=== PATIENT | male | born 1955 | race Caucasian/White ===

== ENCOUNTER → 2017-10-04 | Outpatient (CLI) | payer OTHER ==
[~2017-10-04] MED LIST: CYCL10 PO; NAPR500 PO
[2017-10-04 11:36] LABS: BASOPHILS ABSOLUTE AUTO 0.02 K/mm3 (0.00-0.23); BASOPHILS PERCENT AUTO 0 % (0-2); EOSINOPHILS ABSOLUTE AUTO 0.16 K/mm3 (0.00-0.68); EOSINOPHILS PERCENT AUTO 3 % (0-6); Hematocrit 42.1 % (37.0-53.0); Hemoglobin 13.7 g/dL (13.5-17.5); IMMATURE GRAN ABSOLUTE AUTO 0.02 K/mm3 (0.00-0.10); IMMATURE GRAN PERCENT AUTO 0 % (0-1); LYMPHOCYTES ABSOLUTE AUTO 1.74 K/mm3 (0.84-5.20); LYMPHOCYTES PERCENT AUTO 27 % (21-46); MONOCYTES ABSOLUTE AUTO 0.63 K/mm3 (0.16-1.47); MONOCYTES PERCENT AUTO 10 % (4-13); Mean Corpuscular HGB 30.9 pg (26.0-34.0); Mean Corpuscular HGB Conc 32.5 g/dL (31.5-36.5); Mean Corpuscular Volume 95 fL (80-100); Mean Platelet Volume 12.6 fL (9.1-12.4); NEUTROPHILS ABSOLUTE AUTO 3.88 K/mm3 (1.96-9.15); NEUTROPHILS PERCENT AUTO 60 % (41-73); Platelet Count 128 K/mm3 (150-400); RDW Coefficient Variation 12.6 % (11.7-14.2); RDW Standard Deviation 43.6 fL (35.1-46.3); Red Blood Cell Count 4.44 M/mm3 (4.30-5.90); White Blood Cell Count 6.45 K/mm3 (4.00-11.30)
[2017-10-04 12:11] LABS: Alanine Aminotransfer (ALT/SGP 18 U/L (12-78); Albumin, Blood 4.4 g/dL (3.4-5.0); Albumin/Globulin Ratio 1.3 (0.8-1.8); Alk Phos 72 U/L (50-136); Anion Gap 9 mmol/L (6-16); Aspartate Aminotrans (AST/SGOT 14 U/L (12-37); Bilirubin, Total 0.5 mg/dL (0.1-1.0); Blood Urea Nitrogen 25 mg/dL (8-24); Bun/Creatinine Ratio 19.7 (12.0-20.0); CO2, Blood 25 mmol/L (21-32); Calcium, Blood 8.8 mg/dL (8.5-10.1); Chloride, Blood 109 mmol/L (98-108); Cholesterol 124 mg/dL (50-200); Creatinine, Blood 1.27 mg/dL (0.60-1.20); Globulin, Blood 3.3 g/dL (2.2-4.0); Glomerular Filtration Rate >60 (60-); Glucose, Blood 104 mg/dL (70-99); HDL Cholesterol 31 mg/dL (>39); Low Density Lipoprotein Chol 61 mg/dL (0-110); Potassium, Blood 4.4 mmol/L (3.5-5.5); Prostate Specific Antigen 0.511 ng/mL (0.000-4.000); Sodium, Blood 143 mmol/L (136-145); Total Protein, Blood 7.7 g/dL (6.4-8.2); Triglycerides 161 mg/dL (30-160); Very Low Density Lipoprot Chol 32 mg/dL (6-32)
== END | disposition home or self-care (01) ==
LOC: LAB 11:22 → LAB SHORT 11:22
DX: Z13.0 Encounter for screening for diseases of the blood and blood-forming organs and certain disorders involving the immune mechanism (principal); Z12.5 Encounter for screening for malignant neoplasm of prostate; I10 Essential (primary) hypertension
CPT/HCPCS: 80053; 80061; 85025; G0103

== ENCOUNTER 2018-07-14 16:14 | Observation (INO) | payer MEDICARE, OTHER ==
[~2018-07-14] VITALS: Ht 182.9 cm; Wt 97.1 kg
[~2018-07-14 16:14] MED LIST changes: +Aspirin EC81 MG PO; +DULO30 PO; +FOLATE PO; +Mobic15 MG PO; +Omeprazole20 M1 PO; +PROP10 PO
[2018-07-14 17:40] LABS: BASOPHILS ABSOLUTE AUTO 0.02 K/mm3 (0.00-0.23); BASOPHILS PERCENT AUTO 0 % (0-2); EOSINOPHILS ABSOLUTE AUTO 0.26 K/mm3 (0.00-0.68); EOSINOPHILS PERCENT AUTO 4 % (0-6); Hematocrit 44.2 % (37.0-53.0); Hemoglobin 14.6 g/dL (13.5-17.5); IMMATURE GRAN ABSOLUTE AUTO 0.03 K/mm3 (0.00-0.10); IMMATURE GRAN PERCENT AUTO 0 % (0-1); LYMPHOCYTES ABSOLUTE AUTO 1.94 K/mm3 (0.84-5.20); LYMPHOCYTES PERCENT AUTO 28 % (21-46); MONOCYTES ABSOLUTE AUTO 0.64 K/mm3 (0.16-1.47); MONOCYTES PERCENT AUTO 9 % (4-13); Mean Corpuscular HGB 31.8 pg (26.0-34.0); Mean Corpuscular Volume 96 fL (80-100); Mean Platelet Volume 12.1 fL (9.1-12.4); NEUTROPHILS ABSOLUTE AUTO 4.09 K/mm3 (1.96-9.15); NEUTROPHILS PERCENT AUTO 59 % (41-73); Platelet Count 177 K/mm3 (150-400); RDW Coefficient Variation 12.4 % (11.7-14.2); RDW Standard Deviation 43.9 fL (35.1-46.3); Red Blood Cell Count 4.59 M/mm3 (4.30-5.90); White Blood Cell Count 6.98 K/mm3 (4.00-11.30)
[2018-07-14 18:23] LABS: Source, Urine Clean Catch
[2018-07-14 18:38] LABS: Bilirubin, Urine Neg (Neg); Blood, Urine Neg (Neg); Glucose Qualitative, Urine Neg (Neg); Ketones, Urine Neg (Neg); Leukocyte Esterase, Urine Neg (Neg); Nitrite, Urine Neg (Neg); Protein, Urine Neg (Neg); Specific Gravity, Urine 1.015 (1.003-1.022); Urobilinogen, Urine NORM (Normal)
[2018-07-14 18:51] LABS: Appearance, Urine Clear (Clear); Color, Urine Yellow (P-Yellow)
[2018-07-14 18:52] LABS: Alanine Aminotransfer (ALT/SGP 23 U/L (12-78); Albumin, Blood 4.1 g/dL (3.4-5.0); Alk Phos 89 U/L (50-136); Anion Gap 4 mmol/L (6-16); Aspartate Aminotrans (AST/SGOT 32 U/L (12-37); Bilirubin, Total 0.4 mg/dL (0.1-1.0); Blood Urea Nitrogen 21 mg/dL (8-24); Bun/Creatinine Ratio 16.9 (12.0-20.0); CO2, Blood 29 mmol/L (21-32); Calcium, Blood 9.1 mg/dL (8.5-10.1); Chloride, Blood 108 mmol/L (98-108); Creatinine, Blood 1.24 mg/dL (0.60-1.20); Globulin, Blood 4.1 g/dL (2.2-4.0); Glomerular Filtration Rate >60 (60-); Glucose, Blood 115 mg/dL (70-99); Potassium, Blood 4.5 mmol/L (3.5-5.5); Sodium, Blood 141 mmol/L (136-145); Total Protein, Blood 8.2 g/dL (6.4-8.2)
[2018-07-14 19:05] LABS: U Amphetamine Screen Not Detected; U Barbituate Screen Not Detected; U Benzodiazapine Screen Not Detected; U Buprenorphine Screen Not Detected; U Cannabinoids Screen Not Detected; U Cocaine Screen Not Detected; U Methadone Screen Not Detected; U Methamphetamine Screen Not Detected; U Opiates Screen Not Detected; U Oxycodone Screen Not Detected; U Phencyclidine Screen Not Detected; U Propoxyphene Screen Not Detected
[2018-07-14] MEDS ORDERED: TAMS.4ER PO (19:09)
[2018-07-14] MEDS ORDERED: DOCU100 PO (21:00)
[2018-07-14] MEDS ORDERED: FOLI400 PO (21:00)
[2018-07-14] MEDS ORDERED: CHOL10002 PO (21:01)
[2018-07-15 06:09] LABS: Very Low Density Lipoprot Chol 51 mg/dL (6-32)
[2018-07-15 06:10] LABS: Cholesterol 151 mg/dL (50-200); HDL Cholesterol 30 mg/dL (>39); LDL/HDL RATIO 2.3; Low Density Lipoprotein Chol 70 mg/dL (0-110); Triglycerides 255 mg/dL (30-160)
--- NOTE | 2018-07-15 06:12 | NUR ---
SHIFT SUMMARY PT IS A 63 Y/O MALE, ADMITTED FOR A CVA. HE IS STILL REPORTING LEFT ARM NUMBNESS AND TINGLING, BUT IS OTHERWISE NEUROLOGICALLY INTACT. HE IS A&O X 3, THOUGH OCCASIONALLY FORGETFUL AND A POOR HISTORIAN. HE DENIED ANY COMPLAINTS OF PAIN, NAUSEA OR SOB AND SLEPT WELL THROUGH THE NIGHT. HIS BP WAS ELEVATED ON ADMISSION AT 178/94, BUT CAME DOWN TO NORMAL RANGE AFTER HIS BEDTIME PROPANOLOL. NO OTHER ACUTE CHANGES IN PT CONDITION NOTED. WILL CONTINUE TO MONITOR AND TREAT PER EMAR UNTIL HAND OFF TO DAY SHIFT.
--- NOTE | 2018-07-15 10:27 | NUR ---
WHEN BREAKFAST ARRIVED AND TRAY WAS BROUGHT INTO THE ROOM PATIENT STATED HE WAS NOT HUNGRY AND DID NOT WANT TO EAT. TRAY WAS REMOVED AND PATIENT WAS OFFERED OTHER ITEMS AND PATIENT DECLINED. I LET PATIENT KNOW TO INFORM ME IF HE GETS HUNGRY SO WE CAN GET HIM SOMETHING TO EAT.
--- NOTE | 2018-07-15 17:31 | NUR ---
SUMMARY PT SITTING UP IN BED WATCHING TV, PT HAS BEEN PLEASANT AND COOPERATIVE T/O THE DAY, NEURO CHECKS REMAIN UNCHANGED, PT WITH UNEQUAL PUPILS AND L ARM NUMBNESS, PT HAS WORKED WITH PT/OT AND WALKED IN THE HALLS, POSSIBLE PLAN TO DC IN AM, PENDING CT ANGIO HEAD AND NECK, WILL CONT TO MONITOR
--- NOTE | 2018-07-16 04:37 | NUR ---
SHIFT SUMMARY PT HAS SLEPT T/O SHIFT. PT HAD NO COMPLAINTS. PT CURRENTLY SLEEPING AND BREATHING EASY. CALL LIGHT IN REACH.
--- NOTE | 2018-07-16 07:54 | NUR ---
NEURO CHECK NO FACIAL DROOP, NO DROOLING, SPEECH IS CLEAR
--- NOTE | 2018-07-16 10:55 | NUR ---
IV ASSESSMENT ASSESSMENT FOR IV RIGHT AC-WNL
--- NOTE | 2018-07-16 10:56 | NUR ---
RETURN FROM CT PATIENT RETURNED FROM CT ON TRANSPORT [facility]. IN NO ACUTE DISTRESS
[2018-07-16] MEDS ORDERED: ASPI325EC PO (15:15)
[2018-07-16] MEDS ORDERED: CLOP75 PO (15:17)
[2018-07-16] MEDS ORDERED: ATOR40TA PO (15:17)
[2018-07-16] MEDS ORDERED: Nicoderm Cq1 EAC1 TOP (15:18)
--- NOTE | 2018-07-16 17:11 | NUR ---
SHIFT SUMMARY PT. WAS A DELIGHT TO WORK WITH TODAY. STARTING AN IV WAS DIFFICULT DUE TO POOR VEIN AVAILABLITY. HIS PUPILS REMAIN ASYMETRICAL WITH THE LEFT ONE BEING LARGER THAN THE RIGHT. HE DENIES PAIN. HE IS LOOKING FORWARD TO HIS RETURN HOME TO HIS CAT. HE IS WAITING FOR THE ARRIVAL OF [facility] TO TRANSPORT HIM HOME.
--- NOTE | 2018-07-16 18:10 | NUR ---
HOME TRANSPORT SPOKE WITH [facility] WHO HAS SOME UNEXPECTED ISSUES WITH TIMING. A [employer]EL[employer] WILL BE HERE SHORTLY TO TRANSPORT MR. SUKUMAR GREEN.
== END 2018-07-16 19:23 | disposition home or self-care (01) ==
LOC: ER 16:14 → MEDS 16:15
PROVIDERS: Emergency Medicine; ADMIT Family Medicine
DX: I63.9 Cerebral infarction, unspecified (principal); I12.9 Hypertensive chronic kidney disease with stage 1 through stage 4 chronic kidney disease, or unspecified chronic kidney disease; N18.3 Chronic kidney disease, stage 3 (moderate); I25.10 Atherosclerotic heart disease of native coronary artery without angina pectoris; J44.9 Chronic obstructive pulmonary disease, unspecified; N40.0 Benign prostatic hyperplasia without lower urinary tract symptoms; K21.9 Gastro-esophageal reflux disease without esophagitis; F32.9 Major depressive disorder, single episode, unspecified; F17.210 Nicotine dependence, cigarettes, uncomplicated; Z79.899 Other long term (current) drug therapy; Z79.82 Long term (current) use of aspirin
CPT/HCPCS: 36415; 70450; 70496; 70498; 70551; 80053; 80061; 81003; 83036; 85025; 93005; 93010; 93306; 93880; 97165; 97530; 99285-25; G0480; J1650; J7120; Q9967

== ENCOUNTER → 2018-08-23 | Outpatient (CLI) | payer MEDICARE, OTHER ==
[~2018-08-23] MED LIST changes: +ASPI325EC PO; +ATOR40TA PO; +CHOL10002 PO; +CLOP75 PO; +DOCU100 PO; +FOLI400 PO; +MELO7.5 PO; +Nicoderm Cq1 EAC1 TOP; +Roxicodone5 MG PO; +TAMS.4ER PO
[2018-08-24 20:06] LABS: Microalbumin, Urine Quant. <5.000 mg/L (0.000-20.000); Protein, Urine Quantitative <5.0 mg/dL (0.0-11.9)
== END | disposition home or self-care (01) ==
LOC: LAB UCHC 08:00 → LAB SHORT 08:00
PROVIDERS: Internal Medicine Nephrology
DX: N18.3 Chronic kidney disease, stage 3 (moderate) (principal); D63.1 Anemia in chronic kidney disease; R73.09 Other abnormal glucose; N25.81 Secondary hyperparathyroidism of renal origin; E55.9 Vitamin D deficiency, unspecified; E78.00 Pure hypercholesterolemia, unspecified; G60.9 Hereditary and idiopathic neuropathy, unspecified; R94.8 Abnormal results of function studies of other organs and systems; R94.6 Abnormal results of thyroid function studies; R76.9 Abnormal immunological finding in serum, unspecified
CPT/HCPCS: 81050; 82043; 82570; 84156

== ENCOUNTER 2018-10-13 19:02 | Emergency (ER) | payer MEDICARE, OTHER ==
[~2018-10-13] VITALS: Ht 182.9 cm; Wt 96.6 kg
[2018-10-13] MEDS ORDERED: Norco 5-325 Ta1 EACH PO (21:22)
== END 2018-10-13 22:58 | disposition home or self-care (01) ==
LOC: ER 19:02
DX: M54.16 Radiculopathy, lumbar region (principal); I25.10 Atherosclerotic heart disease of native coronary artery without angina pectoris; I12.9 Hypertensive chronic kidney disease with stage 1 through stage 4 chronic kidney disease, or unspecified chronic kidney disease; N18.9 Chronic kidney disease, unspecified; N40.0 Benign prostatic hyperplasia without lower urinary tract symptoms; F32.9 Major depressive disorder, single episode, unspecified; Z86.73 Personal history of transient ischemic attack (TIA), and cerebral infarction without residual deficits; F17.210 Nicotine dependence, cigarettes, uncomplicated
CPT/HCPCS: 72100; 96372; 99283-25; A9270; J1170

== ENCOUNTER 2018-10-16 07:22 | Inpatient (IN) | payer MEDICARE, OTHER ==
[~2018-10-16] VITALS: Ht 182.9 cm; Wt 92.4 kg
[~2018-10-16 07:22] MED LIST changes: +Norco 5-325 Ta1 EACH PO
[2018-10-16 07:50] LABS: BASOPHILS ABSOLUTE AUTO 0.01 K/mm3 (0.00-0.23); BASOPHILS PERCENT AUTO 0 % (0-2); EOSINOPHILS ABSOLUTE AUTO 0.11 K/mm3 (0.00-0.68); EOSINOPHILS PERCENT AUTO 1 % (0-6); Hematocrit 36.8 % (37.0-53.0); Hemoglobin 12.2 g/dL (13.5-17.5); IMMATURE GRAN ABSOLUTE AUTO 0.03 K/mm3 (0.00-0.10); IMMATURE GRAN PERCENT AUTO 0 % (0-1); LYMPHOCYTES ABSOLUTE AUTO 1.28 K/mm3 (0.84-5.20); LYMPHOCYTES PERCENT AUTO 14 % (21-46); MONOCYTES ABSOLUTE AUTO 0.59 K/mm3 (0.16-1.47); MONOCYTES PERCENT AUTO 6 % (4-13); Mean Corpuscular HGB 30.7 pg (26.0-34.0); Mean Corpuscular HGB Conc 33.2 g/dL (31.5-36.5); Mean Corpuscular Volume 93 fL (80-100); Mean Platelet Volume 11.8 fL (9.1-12.4); NEUTROPHILS ABSOLUTE AUTO 7.26 K/mm3 (1.96-9.15); NEUTROPHILS PERCENT AUTO 78 % (41-73); Platelet Count 154 K/mm3 (150-400); RDW Coefficient Variation 13.8 % (11.7-14.2); RDW Standard Deviation 46.7 fL (35.1-46.3); Red Blood Cell Count 3.98 M/mm3 (4.30-5.90); White Blood Cell Count 9.28 K/mm3 (4.00-11.30)
[2018-10-16 08:05] LABS: International Normalized Ratio 0.97; Prothrombin Time Results 10.3 Sec (9.7-11.5)
[2018-10-16 08:12] LABS: Alanine Aminotransfer (ALT/SGP 12 U/L (12-78); Albumin, Blood 3.7 g/dL (3.4-5.0); Albumin/Globulin Ratio 0.9 (0.8-1.8); Alk Phos 90 U/L (50-136); Anion Gap 7 mmol/L (6-16); Aspartate Aminotrans (AST/SGOT 13 U/L (12-37); Bilirubin, Total 0.4 mg/dL (0.1-1.0); Blood Urea Nitrogen 19 mg/dL (8-24); Bun/Creatinine Ratio 17.4 (12.0-20.0); CO2, Blood 25 mmol/L (21-32); Calcium, Blood 9.2 mg/dL (8.5-10.1); Chloride, Blood 108 mmol/L (98-108); Creatinine, Blood 1.09 mg/dL (0.60-1.20); Glomerular Filtration Rate >60 (60-); Glucose, Blood 134 mg/dL (70-99); Potassium, Blood 3.9 mmol/L (3.5-5.5); Sodium, Blood 140 mmol/L (136-145); Total Protein, Blood 7.7 g/dL (6.4-8.2)
[2018-10-16 10:04] LABS: Source, Urine Clean Catch
[2018-10-16 10:08] LABS: Bilirubin, Urine Neg (Neg); Blood, Urine Neg (Neg); Glucose Qualitative, Urine Neg (Neg); Ketones, Urine Neg (Neg); Leukocyte Esterase, Urine Neg (Neg); Nitrite, Urine Neg (Neg); Protein, Urine Neg (Neg); Specific Gravity, Urine 1.005 (1.003-1.022); Urobilinogen, Urine NORM (Normal); pH, Urine 6.5 (5.0-8.0)
[2018-10-16 10:09] LABS: Appearance, Urine Clear (Clear); Color, Urine Yellow (P-Yellow)
[2018-10-16] MEDS ORDERED: CHOL10002 PO (13:48)
[2018-10-16] MEDS ORDERED: Meribin5 MG PO (13:48)
[2018-10-16] MEDS ORDERED: Norco 5-325 Ta1 EACH PO (13:49)
[2018-10-16] MEDS ORDERED: GABA100 PO (13:50)
[2018-10-16] MEDS ORDERED: CALC.25 PO (13:51)
[2018-10-16] MEDS ORDERED: DOCU100 PO (13:52)
--- NOTE | 2018-10-16 16:49 | NUR ---
SUMMARY PT ADMITTED FROM THE ER FOR CVA, PT IS ALERT AND ORIENTED, FORGETFUL, PLEASANT AND COOPERATIVE, PT WITH VISION CHANGES, HAND DEVELOPER ADVOCATE AND FOOT STRENGTH IS EQUAL AND STRONG, PT LIVES AT AN ADULT FOSTER HOME AND PLANS ON RETURNING THERE AT DISCHARGE, PT HAS C/O A HEADACHE AND WAS MED PER EMAR, PT ABLE TO TAKE PILLS WHOLE WITH WATER, PT HAS NO TEETH OR DENTURES, PT STATES HE HAS NO DIFFICULTY EATING OR CHEWING HIS FOOD, PT ORIENTED TO THE ROOM AND CALL SYSTEM, BED ALARM ON FOR SAFETY, WILL CONT TO MONITOR
--- NOTE | 2018-10-17 05:41 | NUR ---
SUMMARY: PT A/OX4, COOPERATIVE W/CARE AND SPECIFIES NEEDS. HE HAS VISION DEFICITS POST CVA AND CAN ONLY SEE LIGHT/SHADOWS AT THIS TIME. NO OTHER DEFICITS NOTED W/BILAT STENGTH AND COORDINATION INTACT. PT ALARM WAS ARMED FOR POSSIBLE IMPULSIVITY/FORGETFULLNESS THOUGH HE DIDN'T EXHIBIT ANY THIS SHIFT. HE REQUIRES MEAL/MED SET-UP THEN CAN MANAGE ON OWN. HE USES FWW AT BASELINE AND HAS BEEN 1ASSIST FOR SAFETY. HE USED URINAL T/O NOCTE AND SCD'S INTACT. PT REMAINS NSR W/PVC'S AT 70-80'S. HE RECIEVED TYLENOL PRN FOR GOOD RELIEF OF "NAGGING MCHUGH". NO ACUTE CHANGES, NEURO OBS STABLE AND VSS/AFEBRILE. WCTM AND REPORT TO DAY RN.
--- NOTE | 2018-10-17 07:17 | NUR ---
ASSUMED CARE OF PT- BEDSIDE REPORT COMPLETED WITH NIGHT JESSE PITTS. PER REPORT PT HAS Hx CVA, CURRENT ADMIT FOR A SECOND CVA. PT BIGGEST ISSUE (PER PT) IS THAT HE CAN NOT SEE. PER REPORT PT IS ALERT AND ORIENTED AND CAN DO THINGS INDEPENDENTLY WITH SETUP. MED CUP PLACED IN HIS HAND, HE CAN TAKE THEM, WATTER BOTTLE PLACED IN HIS HAND HE CAN DRINK, MEAL TRAY SETUP AT LEAST IF NO ASSIST TO FEED. PT ON ASPIRIN AND LOVENOX AT THIS TIME. PT WAS MEDICATED TWICE WITH TYLENOL FOR A HEADACHE. PER PT HEADACHE IS GONE AT THIS TIME.
--- NOTE | 2018-10-17 18:17 | NUR ---
SHIFT SUMMARY- PT ALERT AND ORIENTED. PER PT PRIOR TO THIS ADMISSION HE EXPERIENCED A BAD HEADACHE TOOK SOME TYLENOL AND WENT TO BED, PT STATES HE WOKE THE NEXT MORNING BLIND. PT STILL MOSTLY BLIND WITH SOME LIGHT CREATING OUTLINES OF OBJECTS (PER PT) PT WORKED WITH PHYSICAL THERAPY AND OCCUPATIONAL THERAPY TODAY HIS SIGHT PREVENTS ACTIVITY, BED ALARM ON FOR SAFETY. CALL LIGHT IN REACH. FREQUENT ROUNDING FOR PT SAFETY.
--- NOTE | 2018-10-17 20:15 | NUR ---
DISCHARGE SUMMARY: PT DISCHARGED HOME WITH ALL PERSONAL BELONGINGS. PT GIVEN DISCHARGE INSTRUCTIONS WITH GOOD UNDERSTANDING NOTED. PTS FRIEND AT SIDE AND PATIENT WAS ESCORTED TO ELEVATOR BY THIS NURSE. PTS GAIT SLOW AND STEADY. PT HAPPY AND COOPERATIVE.
--- NOTE | 2018-10-18 04:41 | NUR ---
SHIFT SUMMARY: 63 Y/O MALE RESTED COMFORTABLY IN BED ALL SHIFT. PT IS BLIND AND REQUIRES CUES AND ASSISTANCE WITH DRINKING FLUIDS AND FEELING FOR OBJECTS THAT ARE POINTED OUT BY THIS NURSE. PT DENIES PAIN OR NAUSEA. PTS ABLE TO MOVE ALL EXTREMITIES. PTS BED LOW POSITION, CALL LIGHT AT SIDE.
[2018-10-18] MEDS ORDERED: Aspirin EC81 MG PO (11:52)
--- NOTE | 2018-10-18 15:31 | NUR ---
PT AOX4 COOPERATIVE OF ALL CARE. PT STATES HE CAN SEE A BIT BETTER TODAY. PT SAYS HE CAN SEE SHADOWS OF THINGS OUT THE SIDES OF HIS EYES TODAY. DENIED PAIN. DISCHARGED HOME VIA [facility] AT 1530. ALL PAPERS REVIEWED AND EDUCATIONAL MATERIAL REVIEWED. PERSONAL BELONGINGS WITH PT.
== END 2018-10-18 15:28 | disposition home health service (06) | DRG 66 ==
LOC: ER 07:22 → MEDS 13:23
PROVIDERS: Physician Assistant; ADMIT Internal Medicine
DX: I63.532 Cerebral infarction due to unspecified occlusion or stenosis of left posterior cerebral artery (principal); I12.9 Hypertensive chronic kidney disease with stage 1 through stage 4 chronic kidney disease, or unspecified chronic kidney disease; N18.9 Chronic kidney disease, unspecified; F32.9 Major depressive disorder, single episode, unspecified; N40.0 Benign prostatic hyperplasia without lower urinary tract symptoms; I67.2 Cerebral atherosclerosis; H26.9 Unspecified cataract; F17.290 Nicotine dependence, other tobacco product, uncomplicated; I25.10 Atherosclerotic heart disease of native coronary artery without angina pectoris; R29.703 NIHSS score 3; I65.01 Occlusion and stenosis of right vertebral artery
CPT/HCPCS: 36415; 70450; 70496; 70498; 72100; 80053; 81003; 85025; 85610; 93005; 93010; 96361-59; 96374-59; 97116; 97162; 97166; 97530; 97535; 99285-25; A9270; A9270-GY; J1650; J2765; J7120; Q9967

== ENCOUNTER 2018-10-31 09:03 | Emergency (ER) | payer MEDICARE, OTHER ==
[~2018-10-31] VITALS: Ht 182.9 cm; Wt 97.5 kg
[~2018-10-31 09:03] MED LIST changes: +CALC.25 PO; +GABA100 PO; +Meribin5 MG PO
[2018-10-31] MEDS ORDERED: CEPH500 PO (11:43)
== END 2018-10-31 13:19 | disposition home or self-care (01) ==
LOC: ER 09:03
DX: M79.672 Pain in left foot (principal); Z79.899 Other long term (current) drug therapy; Z79.82 Long term (current) use of aspirin; Z86.73 Personal history of transient ischemic attack (TIA), and cerebral infarction without residual deficits; I12.9 Hypertensive chronic kidney disease with stage 1 through stage 4 chronic kidney disease, or unspecified chronic kidney disease; N18.9 Chronic kidney disease, unspecified; F32.9 Major depressive disorder, single episode, unspecified; J44.9 Chronic obstructive pulmonary disease, unspecified; F17.290 Nicotine dependence, other tobacco product, uncomplicated
CPT/HCPCS: 73630; 99283-25

== ENCOUNTER 2019-03-21 08:34 | Emergency (ER) | payer MEDICARE, OTHER ==
[~2019-03-21] VITALS: Ht 182.9 cm; Wt 97.5 kg
[~2019-03-21 08:34] MED LIST changes: +CEPH500 PO; +OMEPRAZOLE20 MG PO; -Omeprazole20 M1 PO; +VITAMIN D35000 UNI2 PO
[2019-03-21] MEDS ORDERED: LOSA25 PO (08:49)
[2019-03-21] MEDS ORDERED: GABA100 PO (08:49)
[2019-03-21] MEDS ORDERED: ALLO100 PO (08:50)
[2019-03-21 12:00] LABS: BASOPHILS ABSOLUTE AUTO 0.01 K/mm3 (0.00-0.23); BASOPHILS PERCENT AUTO 0 % (0-2); EOSINOPHILS PERCENT AUTO 1 % (0-6); Hematocrit 38.4 % (37.0-53.0); Hemoglobin 12.4 g/dL (13.5-17.5); IMMATURE GRAN ABSOLUTE AUTO 0.03 K/mm3 (0.00-0.10); IMMATURE GRAN PERCENT AUTO 0 % (0-1); LYMPHOCYTES PERCENT AUTO 22 % (21-46); MONOCYTES ABSOLUTE AUTO 0.85 K/mm3 (0.16-1.47); MONOCYTES PERCENT AUTO 10 % (4-13); Mean Corpuscular HGB 30.9 pg (26.0-34.0); Mean Corpuscular HGB Conc 32.3 g/dL (31.5-36.5); Mean Corpuscular Volume 96 fL (80-100); Mean Platelet Volume 11.5 fL (9.1-12.4); NEUTROPHILS ABSOLUTE AUTO 5.68 K/mm3 (1.96-9.15); NEUTROPHILS PERCENT AUTO 66 % (41-73); Platelet Count 143 K/mm3 (150-400); RDW Coefficient Variation 14.1 % (11.7-14.2); RDW Standard Deviation 49.7 fL (35.1-46.3); Red Blood Cell Count 4.01 M/mm3 (4.30-5.90); White Blood Cell Count 8.57 K/mm3 (4.00-11.30)
[2019-03-21 12:26] LABS: Alanine Aminotransfer (ALT/SGP 21 U/L (12-78); Albumin, Blood 3.7 g/dL (3.4-5.0); Albumin/Globulin Ratio 0.9 (0.8-1.8); Alk Phos 115 U/L (50-136); Anion Gap 4 mmol/L (6-16); Aspartate Aminotrans (AST/SGOT 13 U/L (12-37); Bilirubin, Total 0.5 mg/dL (0.1-1.0); Blood Urea Nitrogen 13 mg/dL (8-24); Bun/Creatinine Ratio 12.5 (12.0-20.0); CO2, Blood 28 mmol/L (21-32); Calcium, Blood 9.3 mg/dL (8.5-10.1); Chloride, Blood 106 mmol/L (98-108); Creatinine, Blood 1.04 mg/dL (0.60-1.20); Globulin, Blood 4.1 g/dL (2.2-4.0); Glomerular Filtration Rate >60 (60-); Glucose, Blood 94 mg/dL (70-99); Magnesium, Blood 1.6 mg/dL (1.6-2.4); Potassium, Blood 4.2 mmol/L (3.5-5.5); Sodium, Blood 138 mmol/L (136-145); Total Protein, Blood 7.8 g/dL (6.4-8.2)
== END 2019-03-21 13:17 | disposition home or self-care (01) ==
LOC: ER 08:34
PROVIDERS: Physician Assistant
DX: R25.1 Tremor, unspecified (principal); J44.9 Chronic obstructive pulmonary disease, unspecified; I12.9 Hypertensive chronic kidney disease with stage 1 through stage 4 chronic kidney disease, or unspecified chronic kidney disease; N18.9 Chronic kidney disease, unspecified; F32.9 Major depressive disorder, single episode, unspecified; F17.200 Nicotine dependence, unspecified, uncomplicated; Z79.899 Other long term (current) drug therapy
CPT/HCPCS: 36415; 80053; 83735; 85025; 93005; 93010; 99284-25

== ENCOUNTER 2019-04-23 08:20 | Emergency (ER) | payer MEDICARE, OTHER ==
[~2019-04-23] VITALS: Ht 182.9 cm; Wt 95.2 kg
[~2019-04-23 08:20] MED LIST changes: +ALLO100 PO; +LOSA25 PO
[2019-04-23 09:09] LABS: BASOPHILS ABSOLUTE AUTO 0.03 K/mm3 (0.00-0.23); BASOPHILS PERCENT AUTO 0 % (0-2); EOSINOPHILS ABSOLUTE AUTO 0.19 K/mm3 (0.00-0.68); EOSINOPHILS PERCENT AUTO 2 % (0-6); Hematocrit 40.4 % (37.0-53.0); Hemoglobin 13.3 g/dL (13.5-17.5); IMMATURE GRAN ABSOLUTE AUTO 0.03 K/mm3 (0.00-0.10); IMMATURE GRAN PERCENT AUTO 0 % (0-1); LYMPHOCYTES ABSOLUTE AUTO 1.51 K/mm3 (0.84-5.20); LYMPHOCYTES PERCENT AUTO 15 % (21-46); MONOCYTES ABSOLUTE AUTO 0.83 K/mm3 (0.16-1.47); MONOCYTES PERCENT AUTO 8 % (4-13); Mean Corpuscular HGB 31.2 pg (26.0-34.0); Mean Corpuscular HGB Conc 32.9 g/dL (31.5-36.5); Mean Corpuscular Volume 95 fL (80-100); Mean Platelet Volume 11.8 fL (9.1-12.4); NEUTROPHILS PERCENT AUTO 74 % (41-73); Platelet Count 152 K/mm3 (150-400); RDW Coefficient Variation 13.7 % (11.7-14.2); RDW Standard Deviation 47.8 fL (35.1-46.3); Red Blood Cell Count 4.26 M/mm3 (4.30-5.90); White Blood Cell Count 9.99 K/mm3 (4.00-11.30)
[2019-04-23] MEDS ORDERED: BIOTIN5000 MCG PO (09:23)
[2019-04-23 09:25] LABS: Alanine Aminotransfer (ALT/SGP 25 U/L (12-78); Albumin, Blood 3.8 g/dL (3.4-5.0); Alk Phos 124 U/L (50-136); Anion Gap 6 mmol/L (6-16); Aspartate Aminotrans (AST/SGOT 14 U/L (12-37); Bilirubin, Total 0.4 mg/dL (0.1-1.0); Blood Urea Nitrogen 12 mg/dL (8-24); Bun/Creatinine Ratio 11.8 (12.0-20.0); CO2, Blood 26 mmol/L (21-32); Calcium, Blood 9.3 mg/dL (8.5-10.1); Chloride, Blood 107 mmol/L (98-108); Creatinine, Blood 1.02 mg/dL (0.60-1.20); Globulin, Blood 3.7 g/dL (2.2-4.0); Glomerular Filtration Rate >60 (60-); Glucose, Blood 123 mg/dL (70-99); Potassium, Blood 4.3 mmol/L (3.5-5.5); Sodium, Blood 139 mmol/L (136-145); Total Protein, Blood 7.5 g/dL (6.4-8.2)
[2019-04-23 09:39] LABS: Influenza A Negative (NEGATIVE); Influenza B Negative (NEGATIVE)
[2019-04-23] MEDS ORDERED: Prednisone20 MG PO (09:46)
[2019-04-23] MEDS ORDERED: ALBU90OI INH (09:46)
[2019-04-23] MEDS ORDERED: Zithromax250 MG PO (09:46)
== END 2019-04-23 10:26 | disposition home or self-care (01) ==
LOC: ER 08:20
PROVIDERS: Physician Assistant
DX: J44.1 Chronic obstructive pulmonary disease with (acute) exacerbation (principal); F17.290 Nicotine dependence, other tobacco product, uncomplicated; Z79.899 Other long term (current) drug therapy; Z79.01 Long term (current) use of anticoagulants; Z79.82 Long term (current) use of aspirin
CPT/HCPCS: 36415; 71046; 80053; 85025; 87804; 93005; 93010; 94640; 99284-25; J7512

== ENCOUNTER → 2020-06-13 | Outpatient (CLI) | payer MEDICARE, OTHER ==
[~2020-06-13] MED LIST changes: +ALBU90OI INH; +BIOTIN5000 MCG PO; +Prednisone20 MG PO; +Zithromax250 MG PO
[2020-06-13 19:53] LABS: BASOPHILS ABSOLUTE AUTO 0.03 K/mm3 (0.00-0.23); BASOPHILS PERCENT AUTO 0 % (0-2); EOSINOPHILS ABSOLUTE AUTO 0.19 K/mm3 (0.00-0.68); EOSINOPHILS PERCENT AUTO 2 % (0-6); Hematocrit 42.6 % (37.0-53.0); Hemoglobin 14.1 g/dL (13.5-17.5); IMMATURE GRAN ABSOLUTE AUTO 0.04 K/mm3 (0.00-0.10); IMMATURE GRAN PERCENT AUTO 0 % (0-1); LYMPHOCYTES ABSOLUTE AUTO 2.32 K/mm3 (0.84-5.20); LYMPHOCYTES PERCENT AUTO 25 % (21-46); MONOCYTES ABSOLUTE AUTO 1.05 K/mm3 (0.16-1.47); MONOCYTES PERCENT AUTO 11 % (4-13); Mean Corpuscular HGB 31.4 pg (26.0-34.0); Mean Corpuscular HGB Conc 33.1 g/dL (31.5-36.5); Mean Corpuscular Volume 95 fL (80-100); Mean Platelet Volume 12.6 fL (9.1-12.4); NEUTROPHILS ABSOLUTE AUTO 5.76 K/mm3 (1.96-9.15); NEUTROPHILS PERCENT AUTO 61 % (41-73); Platelet Count 138 K/mm3 (150-400); RDW Coefficient Variation 13.1 % (11.7-14.2); RDW Standard Deviation 44.9 fL (35.1-46.3); Red Blood Cell Count 4.49 M/mm3 (4.30-5.90); White Blood Cell Count 9.39 K/mm3 (4.00-11.30)
[2020-06-13 20:11] LABS: Uric Acid, Blood 8.3 mg/dL (3.5-7.2)
[2020-06-13 20:27] LABS: Alanine Aminotransfer (ALT/SGP 35 U/L (12-78); Albumin/Globulin Ratio 1.1 (0.8-1.8); Alk Phos 122 U/L (50-136); Anion Gap 4 mmol/L (6-16); Aspartate Aminotrans (AST/SGOT 28 U/L (12-37); Bilirubin, Total 0.5 mg/dL (0.1-1.0); Blood Urea Nitrogen 19 mg/dL (8-24); Bun/Creatinine Ratio 15.1 (12.0-20.0); CO2, Blood 26 mmol/L (21-32); Calcium, Blood 8.9 mg/dL (8.5-10.1); Chloride, Blood 108 mmol/L (98-108); Creatinine, Blood 1.26 mg/dL (0.60-1.20); Globulin, Blood 3.7 g/dL (2.2-4.0); Glomerular Filtration Rate >60 (60-); Glucose, Blood 109 mg/dL (70-99); Potassium, Blood 4.2 mmol/L (3.5-5.5); Sodium, Blood 138 mmol/L (136-145); Total Protein, Blood 7.7 g/dL (6.4-8.2)
== END | disposition home or self-care (01) ==
LOC: LAB 19:13 → LAB SHORT 19:13
PROVIDERS: Family Medicine
DX: M10.9 Gout, unspecified (principal); I10 Essential (primary) hypertension
CPT/HCPCS: 80053; 84550; 85025

== ENCOUNTER 2021-12-05 03:52 | Emergency (ER) | payer MEDICARE, OTHER ==
[~2021-12-05] VITALS: Ht 182.9 cm; Wt 104.3 kg
== END 2021-12-05 08:30 | disposition home or self-care (01) ==
LOC: ER 03:52
DX: R04.0 Epistaxis (principal); I25.10 Atherosclerotic heart disease of native coronary artery without angina pectoris; N40.0 Benign prostatic hyperplasia without lower urinary tract symptoms; I12.9 Hypertensive chronic kidney disease with stage 1 through stage 4 chronic kidney disease, or unspecified chronic kidney disease; N18.9 Chronic kidney disease, unspecified; J44.9 Chronic obstructive pulmonary disease, unspecified; F17.200 Nicotine dependence, unspecified, uncomplicated; Z95.1 Presence of aortocoronary bypass graft; Z95.2 Presence of prosthetic heart valve; Z79.899 Other long term (current) drug therapy; Z79.82 Long term (current) use of aspirin; Z86.73 Personal history of transient ischemic attack (TIA), and cerebral infarction without residual deficits
CPT/HCPCS: A9270

== ENCOUNTER 2022-02-25 21:00 | Emergency (ER) | payer MEDICARE, OTHER ==
[~2022-02-25] VITALS: Ht 182.9 cm; Wt 101.2 kg
[~2022-02-25 21:00] MED LIST changes: +ACET325 PO; +ALUM-MAG HYDRO360 M1 PO; +DICL75ER PO; +FOLI1 PO; -FOLI400 PO; +METO25 PO; +PANT20 PO; +TRELEGY ELLIPT1 EACH INH; +VASCEPA1 G1 PO; +VITAMIN D325 MC3 PO; -VITAMIN D35000 UNI2 PO
[2022-02-25 21:38] LABS: Albumin, Blood 3.8 g/dL (3.4-5.0); Bilirubin, Total 0.4 mg/dL (0.1-1.0); Bun/Creatinine Ratio 13.4 (12.0-20.0); Calcium, Blood 9.2 mg/dL (8.5-10.1); Creatinine, Blood 1.12 mg/dL (0.60-1.20); Globulin, Blood 3.8 g/dL (2.2-4.0); Potassium, Blood 4.9 mmol/L (3.5-5.5); Total Protein, Blood 7.6 g/dL (6.4-8.2)
[2022-02-25 21:56] LABS: BASOPHILS ABSOLUTE AUTO 0.02 K/mm3 (0.00-0.23); BASOPHILS PERCENT AUTO 0 % (0-2); EOSINOPHILS ABSOLUTE AUTO 0.18 K/mm3 (0.00-0.68); EOSINOPHILS PERCENT AUTO 3 % (0-6); Hematocrit 35.6 % (37.0-53.0); Hemoglobin 11.5 g/dL (13.5-17.5); IMMATURE GRAN ABSOLUTE AUTO 0.03 K/mm3 (0.00-0.10); IMMATURE GRAN PERCENT AUTO 0 % (0-1); LYMPHOCYTES ABSOLUTE AUTO 1.71 K/mm3 (0.84-5.20); LYMPHOCYTES PERCENT AUTO 25 % (21-46); MONOCYTES ABSOLUTE AUTO 0.64 K/mm3 (0.16-1.47); MONOCYTES PERCENT AUTO 9 % (4-13); Mean Corpuscular HGB 30.1 pg (26.0-34.0); Mean Corpuscular HGB Conc 32.3 g/dL (31.5-36.5); Mean Corpuscular Volume 93 fL (80-100); Mean Platelet Volume 11.3 fL (9.1-12.4); NEUTROPHILS ABSOLUTE AUTO 4.22 K/mm3 (1.96-9.15); NEUTROPHILS PERCENT AUTO 62 % (41-73); Platelet Count 172 K/mm3 (150-400); RDW Coefficient Variation 14.1 % (11.7-14.2); RDW Standard Deviation 47.8 fL (35.1-46.3); Red Blood Cell Count 3.82 M/mm3 (4.30-5.90)
== END 2022-02-25 23:00 | disposition home or self-care (01) ==
LOC: ER 21:00
PROVIDERS: Emergency Medicine
DX: R55 Syncope and collapse (principal); S09.90XA Unspecified injury of head, initial encounter; S00.83XA Contusion of other part of head, initial encounter; J44.9 Chronic obstructive pulmonary disease, unspecified; I12.9 Hypertensive chronic kidney disease with stage 1 through stage 4 chronic kidney disease, or unspecified chronic kidney disease; N18.9 Chronic kidney disease, unspecified; N40.0 Benign prostatic hyperplasia without lower urinary tract symptoms; F17.290 Nicotine dependence, other tobacco product, uncomplicated; W19.XXXA Unspecified fall, initial encounter; Z95.1 Presence of aortocoronary bypass graft; Z79.82 Long term (current) use of aspirin; Z79.899 Other long term (current) drug therapy; Z86.73 Personal history of transient ischemic attack (TIA), and cerebral infarction without residual deficits
CPT/HCPCS: 36415; 70450; 71045; 72125; 80053; 84484; 85025; 93005; 93010; A9270

== ENCOUNTER 2022-03-22 17:18 | Emergency (ER) | payer MEDICARE, OTHER ==
[~2022-03-22] VITALS: Ht 182.9 cm; Wt 108.9 kg
[2022-03-22 18:57] LABS: Influenza B, PCR NEGATIVE (NEGATIVE); Resp Syncytial Virus, PCR NEGATIVE (NEGATIVE); SARS-Cov-2 (COVID-19) PCR, MMC NEGATIVE (NEGATIVE)
[2022-03-22 19:00] LABS: Influenza A, PCR POSITIVE (NEGATIVE)
== END 2022-03-22 21:27 | disposition home or self-care (01) ==
LOC: ER 17:18
PROVIDERS: Physician Assistant
DX: J10.1 Influenza due to other identified influenza virus with other respiratory manifestations (principal); J44.9 Chronic obstructive pulmonary disease, unspecified; N17.9 Acute kidney failure, unspecified; I12.9 Hypertensive chronic kidney disease with stage 1 through stage 4 chronic kidney disease, or unspecified chronic kidney disease; N40.0 Benign prostatic hyperplasia without lower urinary tract symptoms; F17.290 Nicotine dependence, other tobacco product, uncomplicated; Z79.82 Long term (current) use of aspirin; Z79.899 Other long term (current) drug therapy; Z86.73 Personal history of transient ischemic attack (TIA), and cerebral infarction without residual deficits; Z95.1 Presence of aortocoronary bypass graft; Z95.2 Presence of prosthetic heart valve; Z20.822 Contact with and (suspected) exposure to COVID-19
CPT/HCPCS: 0241U

== ENCOUNTER 2022-03-24 23:55 | Emergency (ER) | payer MEDICARE, OTHER ==
[~2022-03-24] VITALS: Ht 182.9 cm; Wt 106.1 kg
[2022-03-25 00:27] LABS: BASOPHILS ABSOLUTE AUTO 0.01 K/mm3 (0.00-0.23); BASOPHILS PERCENT AUTO 0 % (0-2); EOSINOPHILS ABSOLUTE AUTO 0.09 K/mm3 (0.00-0.68); EOSINOPHILS PERCENT AUTO 1 % (0-6); Hematocrit 31.6 % (37.0-53.0); Hemoglobin 10.2 g/dL (13.5-17.5); IMMATURE GRAN ABSOLUTE AUTO 0.03 K/mm3 (0.00-0.10); IMMATURE GRAN PERCENT AUTO 0 % (0-1); LYMPHOCYTES ABSOLUTE AUTO 1.43 K/mm3 (0.84-5.20); LYMPHOCYTES PERCENT AUTO 21 % (21-46); MONOCYTES ABSOLUTE AUTO 0.59 K/mm3 (0.16-1.47); MONOCYTES PERCENT AUTO 9 % (4-13); Mean Corpuscular HGB 29.1 pg (26.0-34.0); Mean Corpuscular HGB Conc 32.3 g/dL (31.5-36.5); Mean Corpuscular Volume 90 fL (80-100); Mean Platelet Volume 11.6 fL (9.1-12.4); NEUTROPHILS ABSOLUTE AUTO 4.56 K/mm3 (1.96-9.15); NEUTROPHILS PERCENT AUTO 68 % (41-73); Platelet Count 198 K/mm3 (150-400); RDW Standard Deviation 49.7 fL (35.1-46.3); White Blood Cell Count 6.71 K/mm3 (4.00-11.30)
[2022-03-25 01:00] LABS: Albumin, Blood 3.2 g/dL (3.4-5.0); Albumin/Globulin Ratio 0.9 (0.8-1.8); Bilirubin, Total 0.5 mg/dL (0.1-1.0); Bun/Creatinine Ratio 9.3 (12.0-20.0); Calcium, Blood 7.7 mg/dL (8.5-10.1); Creatinine, Blood 1.5 mg/dL (0.60-1.20); Globulin, Blood 3.7 g/dL (2.2-4.0); Potassium, Blood 4.6 mmol/L (3.5-5.5); Prolactin 16.2 ng/mL (2.5-17.4); Total Protein, Blood 6.9 g/dL (6.4-8.2)
[2022-03-25] MEDS ORDERED: PRED20 PO (03:12)
[2022-03-25] MEDS ORDERED: DOXY100 PO (03:12)
== END 2022-03-25 06:13 | disposition home or self-care (01) ==
LOC: ER 23:55
PROVIDERS: Student in an Organized Health Care Education/Training Program
DX: J44.1 Chronic obstructive pulmonary disease with (acute) exacerbation (principal); R55 Syncope and collapse; J10.1 Influenza due to other identified influenza virus with other respiratory manifestations; I12.9 Hypertensive chronic kidney disease with stage 1 through stage 4 chronic kidney disease, or unspecified chronic kidney disease; N18.9 Chronic kidney disease, unspecified; Z79.899 Other long term (current) drug therapy
CPT/HCPCS: 70450; 71046; 80053; 84146; 85025; 93005; 93010; 94644; 94645; 94664; A9270; J0610; J3475; J7030; J7512